=== PATIENT | male | born 1990 | race Two or more races ===

== ENCOUNTER 2021-08-04 16:00 | Emergency (ER) | payer OTHER ==
[~2021-08-04] VITALS: Ht 182.9 cm; Wt 113.4 kg
--- NOTE | 2021-08-04 16:02 | NUR ---
at bedside to examine pt.
[2021-08-04] MEDS ORDERED: flexeril PO (16:12)
[2021-08-04] MEDS: IV NORMAL SALINE 1000 ML BAG IV ONE (16:18)
[2021-08-04 16:52] LABS: CREATININE 1.1 mg/dL (0.6-1.3); POTASSIUM 4.5 mmol/L (3.5-5.1)
[2021-08-04 16:53] LABS: HEMATOCRIT 44.9 % (36.7-47.1); MEAN CORPUSCULAR HEMOGLOBIN 29.4 uug (23.8-33.4); MEAN CORPUSCULAR VOLUME 87.9 fL (73.0-96.2); PLATELET COUNT (AUTO) 264 K/uL (152-348)
--- NOTE | 2021-08-04 17:27 | NUR ---
PT WAS D/C'd TO HOME. D/C INSTRUCTIONS GIVEN TO THE PT BY DR YUSUF. GAIT IS STABLE.NO SOB, NO DIZZINESS, PT DENIES PAIN, NO N/V.
[2021-08-04 17:30] VITALS: BP 131/76
== END 2021-08-04 17:31 | disposition home or self-care (01) ==
LOC: ER 16:03
DX: R55 Syncope and collapse (principal); G89.29 Other chronic pain; M54.9 Dorsalgia, unspecified; F12.90 Cannabis use, unspecified, uncomplicated
CPT/HCPCS: 36415; 71045; 85025; 93005; A4663; J7030